=== PATIENT | female | born 1960 | race Caucasian/White ===

== ENCOUNTER 2020-06-29 08:24 | Day surgery (SDC) | payer MEDICAID, SELFPAY ==
[~2020-06-29] VITALS: Ht 154.9 cm; Wt 79.4 kg
[2020-06-29 13:32] VITALS: BP_SYST 135
== END 2020-06-29 13:32 | disposition home or self-care (01) ==
LOC: SDS 08:24 → SMU 08:26 → SDS 13:32
PROVIDERS: ATTEND Internal Medicine
DX: K62.5 Hemorrhage of anus and rectum (principal); K52.9 Noninfective gastroenteritis and colitis, unspecified; K21.9 Gastro-esophageal reflux disease without esophagitis; I10 Essential (primary) hypertension; Z11.59 Encounter for screening for other viral diseases
CPT/HCPCS: 45380; 88305; 99152; G0378; J7030; U0003